=== PATIENT | male | born 1975 | race Caucasian/White ===

== ENCOUNTER 2022-10-02 07:00 | Outpatient (RCR) | payer OTHER, SELFPAY ==
--- NOTE | 2022-09-11 08:40 | HP.PTEVAL_ITS ---
Patient's Visit Information SAKSHI BURROWS is a 46 year old M referred to Physical Therapy by Dr. Ang Noble MD with a diagnosis of R knee pain. Date of Evaluation: 09/11/22 Physical Therapist: Rolando Cooper, GLADIST, OCS, CSCS - Visit Plan Frequency: 1x/Week Duration: 4-6 Weeks Plan: weekly x 4-6 for progression of HEP for hip and knee strength and quad stretching(check other muscles again next session and progress to WB strength knee and hip). Increase frequeny if pain returns but patient will have hard time getting in with his work schedule - Subjective Goes by [place] have OA in the R knee. No painfree days lately. Had pain on and off for 18 years when he had partial meniscal tear and tendon tear. This year has started keeping him up at night. 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 Got cortisone injection last weeka nd can now sleep. 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 Those days are worse on his knees. Has Bionic brace which helps. Basic ADLs are going Ok, sometimes painful. Hobbies are slacked off but still has to take care of horses. Cleaning up barn has been left to the . Limps around many days. Injection helped sleep and 75% better. - Pain R knee Pain Intensity (Out of 10): 1 Pain Intensity Range: 0, 4 Comment: front - Objective R knee pain 75% better than prior to injection. Walks well today without antalgia. Trasnsfers I, steps without pain today and reciprocally up and down. Full AROM L knee to 140 and R knee to 138 with slight end range flexion discomfort. Tightness present in R quad minimally. Hip and ankle AROM WFL. reflexes 2/3 patella and achilles. Sensation LE WNL to gross light touch. Strength hips abd and ext 4, flexion 4+ , adduction 5/5. knee flexion and extension 4+ ext B with some R knee discomfort mildly and 5/5 knee flexion B. anklestrength 5/5 B without pain. - ant drawer. - post sag. - varus and valgus. - bounce home. Slight + R patellar grind for pain and noise. - Balance/Special Test Scores Lower Extremity Functional Score: 53 - Goals Goal 1:: I management of condition of HEp streength and stretching. Goal Time Frame: 2-4 Weeks Goal 2:: Pt feel knee pain 95% better and not limiting sleep or function Goal Time Frame: 4-6 Weeks - Rehabilitation Potential Physical Therapy Diagnosis: R knee pain OA vs unknown etiology but much better since injection Rehabilitation Potential: Good - Anticipated Interventions Patient/Client Instruction: Educate patient on: Condition, Plan of Care For the Purpose of:: To decrease pain, To improve muscle performance and motor function Therapeutic Exercise to Include: Strength training, Flexibilty training For the Purpose of:: To decrease pain, To improve muscle performance and motor function, To improve ability of physical actions for home/community/work/leisure Thank you for the opportunity to evaluate your patient. For Medicare and Medicare HMO plans, please review the plan of care and approve it. It will need to be FAXED BACK to us at [phone] for Medicare purposes. For Medicare only, by signing this I certify the plan of care. Please let me know if there are questions or concerns regarding this plan of care. Physician Signature: Date:____
--- NOTE | 2022-10-02 07:21 | HP.PTDCSUM ---
It has been my pleasure to treat SAKSHI BURROWS referred by Dr. Ang Noble MD, with the diagnosis of R knee pain for a total of 3 visit(s). Discharge Date: 10/02/22 Please see the following information for a summary of their discharge status. Subjective: No f/u. Knee didn't hurt at all last week for a day. Did wake him up one time. 75% better but still up and down. Slept worse the night after shovelling. Exercises went ok when compliant. R knee Pain Intensity (Out of 10): 1 % Improvement: 75 Objective/Function: Full aROM symmterical with other knee, piriformis still mod tight R vs L. Gait is normal, steps are normal, no pain today. Goal 1:: I management of condition of HEp streength and stretching. Goal Progress: Goal Met Goal 2:: Pt feel knee pain 95% better and not limiting sleep or function Goal Progress: Progressing Plan: d/c to HEp Discharge Comments: Will continue via HPE and let doctor know if pain returns If there are questions or concerns regarding this patient's physical therapy, please feel free to call me at [phone]. Thank you for the referral of this patient. Sincerely, Rolando Cooper, DPT, OCS, CSCS Balance/Gait/Functional tests - Balance/Special Test Scores Lower Extremity Functional Score: 65
== END 2022-10-02 08:37 | disposition home or self-care (01) ==
LOC: PT 07:00
PROVIDERS: Referring Provider Orthopaedic Surgery Sports Medicine; Visit Provider Orthopaedic Surgery Sports Medicine
DX: M25.561 Pain in right knee (principal)
CPT/HCPCS: 97110; 97161; 97530